=== PATIENT | female | born 1970 | race Caucasian/White ===

== ENCOUNTER 2023-11-29 07:08 | Day surgery (SDC) | payer OTHER ==
[~2023-11-29 07:08] MED LIST: Sodium Chloride 0.9% 10 ML Syringe FLUSH PRN
[2023-11-29] MEDS ORDERED: Propofol 200 MG/20 ML SDV IV ONE (07:09)
[2023-11-29] MEDS ORDERED: Lidocaine 2% 100 MG/5 ML Syringe IVPUSH ONE (07:09)
[2023-11-29] MEDS: Lactated Ringers 1,000 ML IV SCH (08:08)
[2023-11-29] MEDS: Simethicone Drops 40 MG/0.6 ML 30 ML Bottle ONE (08:19)
== END 2023-11-29 09:41 | disposition home or self-care (01) ==
LOC: FB.SDS 07:08
PROVIDERS: ATTEND Surgery
DX: Z12.11 Encounter for screening for malignant neoplasm of colon (principal)
CPT/HCPCS: 00811; 45384; 82947; 88305; A9270; J2704; J7120